=== PATIENT | female | born 1990 | race Caucasian/White ===

== ENCOUNTER 2019-03-14 08:05 | Emergency (ER) | payer BC ==
[2019-03-14 08:14] VITALS: BP 129/89
--- NOTE | 2019-03-14 08:55 | UC ---
Skin Complaint HPI - HPI Summary HPI Summary: GOT A BUG BITE ON HER LEFT FOREARM 2 DAYS AGO. SINCE THEN THE SURROUNDING AREA HAS BECOME INCREASINGLY RED, ITCHY AND SWOLLEN. HAS MILD TENDERNESS. HAS BEEN USING TOPICAL BENADRYL CREAM WITH NO EFFECT. SHE DENIES ANY FEVER OR DRAINING FROM THE AREA. - History of Current Complaint Chief Complaint: UCSkin Time Seen by Provider: 03/14/19 08:35 Stated Complaint: LT ARM BITE Hx Obtained From: Patient Hx Last Menstrual Period: 02/13/19 Onset/Duration: Gradual Onset, Lasting Days, Still Present Timing: Constant Onset Severity: Mild Current Severity: Moderate Pain Intensity: 0 Pain Scale Used: 0-10 Numeric Location: Discrete - LEFT FOREARM Character: Pruritus, Pain, Redness, Raised Aggravating Factor(s): Touch Alleviating Factor(s): Nothing Associated Signs & Symptoms: Positive: Rash. Negative: Fever, Drainage - Allergy/Home Medications Allergies/Adverse Reactions: Allergies Allergy/AdvReac Type Severity Reaction Status Date / Time No Known Allergies Allergy Verified 03/14/19 08:15 PMH/Surg Hx/FS Hx/Imm Hx Previously Healthy: Yes - Surgical History Surgical History: Yes Surgery Procedure, Year, and Place: APPENDECTOMY -06/2013 [facility] [place]. TONSILECTOMY [facility] [place]. 2006 4 WISDOM TEETH EXTRACTED @ [facility] - Family History Known Family History: Positive: Non-Contributory - Social History Alcohol Use: Occasionally Alcohol Amount: 1-2 DRINKS/WEEK Substance Use Type: None Smoking Status (MU): Never Smoked Tobacco Have You Smoked in the Last Year: No - Immunization History Most Recent Influenza Vaccination: declined 2016 Most Recent Pneumonia Vaccination: never Review of Systems All Other Systems Reviewed And Are Negative: Yes Constitutional: Positive: Negative Skin: Positive: Rash Respiratory: Positive: Negative Cardiovascular: Positive: Negative Gastrointestinal: Positive: Negative Physical Exam Triage Information Reviewed: Yes Appearance: Well-Appearing, No Pain Distress, Well-Nourished Vital Signs: Initial Vital Signs Temp 96.8 F 03/14/19 08:12 Pulse 80 03/14/19 08:12 Resp 17 03/14/19 08:12 BP 129/89 03/14/19 08:12 Pulse Ox 100 03/14/19 08:12 Vital Signs Reviewed: Yes Eyes: Positive: Conjunctiva Clear ENT: Positive: Hearing grossly normal Neck: Positive: Supple Respiratory: Positive: No respiratory distress, No accessory muscle use Cardiovascular: Positive: Pulses Normal Abdomen Description: Positive: Soft Musculoskeletal: Positive: No Edema Neurological: Positive: Alert Psychological: Positive: Age Appropriate Behavior Skin: Positive: Other - 9CM X 9CM AREA OF ERYTHEMA AND INDURATION SURROUNDING BUG BITE SITE LEFT DORSAL FOREARM. Course/Dx - Diagnoses Provider Diagnosis: Cellulitis of left forearm Discharge - Sign-Out/Discharge Documenting (check all that apply): Patient Departure All imaging exams completed and their final reports reviewed: No Studies - Discharge Plan Condition: Stable Disposition: HOME Prescriptions: Cephalexin CAP* [Keflex 500 CAP*] 500 mg PO BID #14 cap Triamcinolone 0.1% CREAM(NF) [Kenalog Cream 0.1%(NF)] 1 applic TOPICAL TID PRN # 1 tube PRN Reason: Itching Patient Education Materials: Cellulitis (ED) Referrals: Linus Jalloh MD [Primary Care Provider] - If Needed Additional Instructions: TAKE THE ANTIBIOTIC TWICE DAILY FOR THE FULL COURSE TO TREAT THE INFECTION ON YOUR ARM. USE THE TOPICAL STEROID TO HELP WITH INFLAMMATION AND ITCHING. STAY COOL, CLEAN AND DRY. TRY NOT TO SCRATCH. OKAY TO TAKE OTC ORAL ANTIHISTAMINE IF NEEDED TO HELP WITH ANY POSSIBLE ALLERGIC COMPONENT. SEEK FOLLOW-UP IF AFTER 2 DAYS OF TREATMENT YOU HAVE CONTINUED SPREADING REDNESS OF THE SKIN, FEVER, INCREASED PAIN OR ANY OTHER CONCERNING SYMPTOMS. BE AWARE THAT TAKING THE ANTIBIOTIC AT THE SAME TIME YOUR CONTROL PILL CAN DECREASE THE CONTRACEPTIVE EFFICACY. USE BACKUP METHODS OF CONTROL FOR THE REMAINDER OF THE CYCLE AND YOUR NEXT CYCLE. - Billing Disposition and Condition Condition: STABLE Disposition: Home
== END 2019-03-14 08:57 | disposition home or self-care (01) ==
LOC: MERGE 08:05 → UCEAST 08:05
DX: L03.114 Cellulitis of left upper limb (principal)
CPT/HCPCS: 99212; G0463

== ENCOUNTER 2021-02-19 11:47 | Inpatient (IN) ==
[2021-02-19] MEDS ORDERED: Lactated Ringers 1000 ml BAG 1,000 ML IV ONE (13:02)
[2021-02-19 14:20] LABS: Urine Benzodiazepine Screen None Detected (None Detect); Urine Cannabinoids Screen None Detected (None Detect); Urine Opiates Screen None Detected (None Detect)
[2021-02-19] MEDS ORDERED: Morphine 10 MG/ML VIAL (1 ml) IV ONE (23:08)
[2021-02-19] MEDS ORDERED: Promethazine INJ(RESTRICTED) 25 MG/ML 1 ml VIAL IV ONE (23:09)
[2021-02-19 23:43] LABS: ABS Lymphocytes 2.5 10^3/ul (1.0-4.8); ABS Monocytes 0.6 10^3/ul (0-0.8); ABS Neutrophils 5.8 10^3/ul (1.5-7.7); Eosinophil % 0.4 %; Hematocrit 35 % (35-47); Hemoglobin 11.5 g/dL (12.0-16.0); Mean Corpuscular HGB Conc 33 g/dL (31-36); Mean Corpuscular Hemoglobin 28 pg (27-31); Mean Corpuscular Volume 85 fL (80-97); Mean Platelet Volume 10.1 fL (7.4-10.4); Platelet Count 165 10^3/uL (150-450); Red Blood Count 4.12 10^6 /uL (3.70-4.87); Red Cell Distribution Width 14 % (10-15); White Blood Count 9.1 10^3/uL (3.5-10.8)
[2021-02-20] MEDS ORDERED: OBEPIDURAL 250 ML EPIDURAL ONE (02:57)
[2021-02-20] MEDS ORDERED: fentaNYL 100 mcg/2 ml 50 MCG/ML VIAL ONE (02:57)
[2021-02-20] MEDS ORDERED: EPHEDrine (Pressors) 50 MG/ML VIAL IV PUSH PRN ×2 (03:40)
[2021-02-20] MEDS ORDERED: Phenylephrine 40 mcg/mL 10mL (400mcg) SYRINGE IV PUSH PRN ×2 (03:40)
[2021-02-20] MEDS ORDERED: Sodium Citrate/Citric Acid LIQ 15 ML UDC PO PRN (03:40)
[2021-02-20] MEDS ORDERED: Lactated Ringers 1000 ml BAG 1,000 ML IV ONE (03:40)
[2021-02-20] MEDS ORDERED: OBEPIDURAL 250 ML EPIDURAL SCH (04:00)
[2021-02-20] MEDS ORDERED: Lactated Ringers 1000 ml BAG 1,000 ML IV SCH ×2 (04:00→14:00)
[2021-02-20] MEDS ORDERED: Oxytocin in LR 20 UNITS/1,000 ML BAG IVPB SCH ×2 (10:00→14:00)
[2021-02-20] MEDS ORDERED: Dibucaine 1% OINT 28.35 GM TUBE PR PRN (13:08)
[2021-02-20] MEDS ORDERED: Witch Hazel PAD JAR TOPICAL PRN (13:08)
[2021-02-21 07:44] LABS: ABS Eosinophils 0.1 10^3/ul (0-0.6); ABS Lymphocytes 2.4 10^3/ul (1.0-4.8); ABS Monocytes 0.6 10^3/ul (0-0.8); ABS Neutrophils 6.9 10^3/ul (1.5-7.7); Eosinophil % 0.8 %; Hematocrit 31 % (35-47); Hemoglobin 10.4 g/dL (12.0-16.0); Lymphocyte % 23.9 %; Mean Corpuscular HGB Conc 34 g/dL (31-36); Mean Corpuscular Hemoglobin 29 pg (27-31); Mean Corpuscular Volume 86 fL (80-97); Mean Platelet Volume 9.7 fL (7.4-10.4); Platelet Count 133 10^3/uL (150-450); Red Blood Count 3.56 10^6 /uL (3.70-4.87); Red Cell Distribution Width 14 % (10-15)
[2021-02-21 13:10] VITALS: BP 118/67
== END 2021-02-21 15:04 | disposition home or self-care (01) ==
LOC: MCHOBOUT 11:47 → MCHOB 13:06
PROVIDERS: ADMIT Midwife; ATTEND Midwife